=== PATIENT | female | born 1990 | race Two or more races ===

== ENCOUNTER 2023-01-24 21:35 | Inpatient (IN) | payer OTHER ==
[2023-01-25 03:19] LABS: HEMATOCRIT 40.2 % (35.0-50.0); MCH 28.1 (27-36); MCHC 32.2 g/dl (30-36); MCV 87.3 fl (81-99); RBC 4.61 M/ul (4.3-5.7); RDW 15.8 (10.5-15.0)
--- NOTE | 2023-01-25 03:27 | NUR ---
PT WAS SWABBED FOR COVID.
[2023-01-25 03:32] LABS: AMPHETAMINES, URINE NEGATIVE (NEGATIVE); BARBITURATES, URINE NEGATIVE (NEGATIVE); BENZODIAZEPINE, URINE NEGATIVE (NEGATIVE); BUPRENORPHINE, URINE NEGATIVE (NEGATIVE); CANNABINOID, URINE NEGATIVE (NEGATIVE); COCAINE, URINE NEGATIVE (NEGATIVE); ECSTASY, URINE NEGATIVE (NEGATIVE); FENTANYL, URINE NEGATIVE (NEGATIVE); METHADONE, URINE NEGATIVE (NEGATIVE); OPIATES, URINE NEGATIVE (NEGATIVE); OXYCODONE, URINE NEGATIVE (NEGATIVE); PHENCYCLIDINE, URINE NEGATIVE (NEGATIVE)
[2023-01-25 03:50] LABS: ABO A; ANTIBODY SCREEN NEGATIVE; RH POSITIVE
[2023-01-25 04:04] LABS: INFLUENZA B NAA NEGATIVE (NEGATIVE); RESPIRATORY SYNCYTIAL VIR NAA NEGATIVE (NEGATIVE)
[2023-01-25 06:05] VITALS: BP 140/72
--- NOTE | 2023-01-25 10:18 | PR ---
[facility] [address] [facility] [place], [place] [address] Signed Progress Notes IP Datetime Report Generated by CPN: 01/25/2023 10:18 PROGRESS NOTES: [id number] Impression: Normal Progression of Labor Procedures: Sterile Vag Exam Plan: Continue Present Management Informed Consent Obtain: Vaginal Delivery VITAL SIGNS: [id number] Vital Signs: Reviewed EXAM: [id number] Dilatation: 9.0 Effacement: 100 Station: 1 MEMBRANES: [id number] Amniotic Fluid Color: Clear FETUS A: [id number] FHR Baseline: 145 Accelerations: None Decelerations: Early; Late; Variable FHR Category: Category II Presentation: Vertex Comments on Fetus A: No signs of acidemia FETUS B: [id number] Signing Physician: Christian Romano MD Copies: ~ *Electronically Signed* 01/25/23 1018 CHRISTIAN ROMANO MD PATIENT NAME: IRWIN QUINONES PROGRESS NOTE DATE OF : 89 PHYSICIAN: CHRISTIAN ROMANO MD RPT #: [id number] REPORT IS CONFIDENTIAL AND NOT TO BE RELEASED WITHOUT AUTHORIZATION
--- NOTE | 2023-01-25 11:58 | PR ---
[facility] [address] [facility] [place], [place] [address] Signed Progress Notes IP Datetime Report Generated by CPN: 01/25/2023 11:58 PROGRESS NOTES: [id number] Impression: Normal Progression of Labor Procedures: Sterile Vag Exam Plan: Continue Present Management Informed Consent Obtain: Vaginal Delivery VITAL SIGNS: [id number] Vital Signs: Reviewed EXAM: [id number] Dilatation: 9.5 Effacement: 100 Station: 1 Contractions: every 1-2 min MEMBRANES: [id number] Amniotic Fluid Color: Clear Comments: S: Patient resting comfortably in bed. O: AFVSS A/P: Continue to monitor. Recheck in 1 hour. Anticipate vaginal delivery. FETUS A: [id number] FHR Baseline: 145 Variability: Moderate 6-25bpm Accelerations: None Decelerations: Early; Late; Variable FHR Category: Category II Presentation: Vertex Comments on Fetus A: No signs of acidemia FETUS B: [id number] Signing Physician: Christian Romano MD Copies: ~ *Electronically Signed* 01/25/23 1158 CHRISTIAN ROMANO MD PATIENT NAME: IRWIN QUINONES PROGRESS NOTE DATE OF : 89 PHYSICIAN: CHRISTIAN ROMANO MD RPT #: [id number] REPORT IS CONFIDENTIAL AND NOT TO BE RELEASED WITHOUT AUTHORIZATION
[2023-01-26 05:36] LABS: HEMOGLOBIN 11.1 g/dL (12.0-18.0); MCH 28.7 (27-36); MCHC 32.6 g/dl (30-36); MCV 88.3 fl (81-99); RBC 3.85 M/ul (4.3-5.7); RDW 16.1 (10.5-15.0)
[2023-01-26 09:48] LABS: ALBUMIN 2.2 g/dL (3.4-5.0); ALBUMIN/GLOBULIN RATIO 0.55 (1.1-2.4); BILIRUBIN, TOTAL 0.2 ng/dL (0.2-1.0); BUN/CREATININE RATIO 11.59 (6.0-28.6); CALCIUM 8.9 mg/dL (8.5-10.1); CREATININE, SERUM 0.69 mg/dL (0.55-1.02); PROTEIN, TOTAL 6.2 g/dL (6.4-8.2)
[2023-01-26 11:50] LABS: CREATININE, RANDOM URINE 90.37 mg/dL (NOT ESTABLISHED); PROTEIN/CREATININE RATIO 0.39 mg/mg (0.010-0.107)
--- NOTE | 2023-01-27 09:30 | PR ---
[facility] [address] [place], [place] [address] Signed PP Progress Notes Datetime Report Generated by ANTHONY: 01/27/2023 09:29 SUBJECTIVE: [id number] Pain: Within Normal Limits Nausea/Vomiting: Denies Flatus: Yes Bowel Movement: Yes Vital Signs: [id number] Vital Signs: Reviewed; Within Normal Limits Notable Details: Maternal tachycardia in low 100s Cardiovascular: Not Done Respiratory: Not Done Abdomen/Uterus: Normal Lochia: Normal Vulva/Perineum: Not Done Breasts: Not Done CVA Tenderness: Not Done Extremities: Normal Incision: Not Applicable Progress: Normal IMPRESSION/PLAN/PROCEDURES: [id number] Impression: Normal Progression Plan: Discharge Procedures: None Progress Notes: S: 32 yo s/p vaginal delivery. PPD #2. Doing well. Denies CHIU, CP, SOB, F/C, N/V, RUQ pain, changes in vision. Tolerating regular diet, ambulating, voiding, pain controlled, +BM. O: Abd: Fundus firm, below umbilicus. Non tender. Musc: Moving all extremities. No C/C/E. A/P: 32 yo s/p vaginal delivery. PPD #2. Doing well. Meeting all hospital milestones. Elevated pressures during labor but blood pressures have been mostly within normal limits since delivery. PIH labs showed Pr/Cr of 0.39. However there was noted blood within sample and patient could not tolerate straight cath. No current symptoms of preeclampsia. Will discharge home with strict return warnings. She will follow up on Monday for a blood pressure check in the clinic. Signing Physician: Christian Romano MD *Electronically Signed* 01/27/23928 CHRISTIAN ROMANO MD PATIENT NAME: IRWIN QUINONES PROGRESS NOTE DATE OF : 89 PHYSICIAN: CHRISTIAN ROMANO MD RPT #: [id number] REPORT IS CONFIDENTIAL AND NOT TO BE RELEASED WITHOUT AUTHORIZATION [address] [address] Signed Copies: ~ *Electronically Signed* 01/27/23928 CHRISTIAN ROMANO MD PATIENT NAME: IRWIN QUINONES PROGRESS NOTE DATE OF : 89 PHYSICIAN: CHRISTIAN ROMANO MD RPT #: [id number] REPORT IS CONFIDENTIAL AND NOT TO BE RELEASED WITHOUT AUTHORIZATION
== END 2023-01-27 11:40 | disposition home or self-care (01) | DRG 807 ==
LOC: FBCO 21:35 → FBC 01-25 03:02 → FBCO 01-26 12:26 → FBC 01-27 11:40
PROVIDERS: ADMIT Obstetrics & Gynecology; ATTEND Obstetrics & Gynecology
PROC: 10E0XZZ Delivery of Products of Conception, External Approach (ICD-10-PCS; principal; 2023-01-25)
PROC: 3E0R3BZ Introduction of Anesthetic Agent into Spinal Canal, Percutaneous Approach (ICD-10-PCS; 2023-01-25)
PROC: 00HU33Z Insertion of Infusion Device into Spinal Canal, Percutaneous Approach (ICD-10-PCS; 2023-01-25)
PROC: 10907ZC Drainage of Amniotic Fluid, Therapeutic from Products of Conception, Via Natural or Artificial Opening (ICD-10-PCS; 2023-01-25)
PROC: 0UQMXZZ Repair Vulva, External Approach (ICD-10-PCS; 2023-01-25)
PROC: 0UQGXZZ Repair Vagina, External Approach (ICD-10-PCS; 2023-01-25)
DX: O99.824 Streptococcus B carrier state complicating childbirth (principal); Z37.0 Single live birth; Z11.52 Encounter for screening for COVID-19; O70.0 First degree perineal laceration during delivery; O69.1XX0 Labor and delivery complicated by cord around neck, with compression, not applicable or unspecified; Z3A.39 39 weeks gestation of pregnancy
CPT/HCPCS: 01960; 36415; 59025; 80053; 80307; 82570; 82803; 84156; 85027; 86850; 86900; 86901; 87502; A9270; C9803; G0463; J2540; J2590; J7121; U0002